=== PATIENT | female | born 1940 | race Caucasian/White ===

== ENCOUNTER → 2024-03-29 10:57 | Outpatient (REF) | payer OTHER, SELFPAY | LOC: HWWDC 10:57 | PROVIDERS: ATTENDING PHYSICIAN Internal Medicine Critical Care Medicine; FAMILY PHYSICIAN Internal Medicine Geriatric Medicine; REFERRING PHYSICIAN Obstetrics & Gynecology Gynecology | DX: J84.10 Pulmonary fibrosis, unspecified (principal); Z12.31 Encounter for screening mammogram for malignant neoplasm of breast | CPT/HCPCS: 71250; 77063; 77067 ==

== ENCOUNTER 2024-04-20 12:40 | Emergency (ER) | payer OTHER, SELFPAY ==
[2024-04-20 12:43] VITALS: BP 188/86
[2024-04-20 13:04] VITALS: BP 160/74
[2024-04-20 13:38] LABS: % Basophils 0.4 % (0-2); % Immature Granulocytes 0.3 % (0-0.5); % Lymphocytes 25.6 % (20.5-51.1); % Monocytes 7.5 % (1.7-9.3); % Neutrophils 65.2 % (42.2-75.2); Absolute Eosinophils 0.1 10^3/uL (0-0.7); Absolute Lymphocytes 2.6 10^3/uL (1.2-3.4); Absolute Monocytes 0.8 10^3/uL (0.1-0.6); Absolute Neutrophils 6.5 10^3/uL (1.4-6.5); Hematocrit 40.3 % (37.0-47.0); Hemoglobin 13.7 g/dL (12.0-16.0); Mean Corpuscular Volume 88.2 fL (81.0-99.0); Mean Platelet Volume 10.3 fL (7.4-10.4); Nucleated Red Blood Cells % 0 %; Platelet Count 173 10^3/uL (130-400); Red Blood Cell Count 4.57 10^6/uL (4.20-5.40); Red Cell Dist. Width 13.3 % (11.5-14.5)
--- NOTE | 2024-04-20 13:49 | ED.GENMED ---
History of Present Illness
General
Chief Complaint: Breathing Problem
Source: patient
Exam Limitations: none
Time Seen by Provider: 04/20/24 13:19
History of Present Illness
History of Present Illness:
83-year-old female with history of pulmonary fibrosis hyperlipidemia presents complaining of shortness of breath and sharp stabbing pain to the right scapular area when she takes a deep breath. She denies fever. She does note a productive cough.
She denies any leg swelling or calf pain. This pain started 3 days ago. No recent extended travel or surgery. No prior history of DVT or PE. She denies abdominal pain nausea or vomiting. No other complaints at this time.
Past History
Past History
ED Past Medical History: Hypercholesterolemia and Hypothyroidism
ED Past Surgical History: Cardiac (Stent) and Orthopedic (Bilateral rotator cuff surgery, Bilateral knee replacements,)
Social History
Tobacco: Non-smoker
Alcohol: None
Personal:
Living: with family
Phy Exam
Physical Exam
Physical Exam:
General: Uncomfortable appearing female no acute respiratory distress
HEENT: Normocephalic atraumatic
Heart: Regular rate and rhythm no murmurs lungs: Clear no wheeze
Abdomen is soft nontender nondistended no guarding or rebound
Extremities: No cyanosis or edema no calf tenderness
Skin is warm no rash
Scores
Heart Failure Risk
Heart Failure Risk Score: Not Applicable
Course
Orders/Labs/Results
Orders:
Orders
04/20/24 12:44
EKG [Electrocardiogram (*1)] Urgent
Reason for Study: Shortness of Breath
04/20/24 12:45
EKG- Treatment ONCE
04/20/24 13:23
IV Insert/Care/Rem.- Treatment PRN
04/20/24 13:27
CT Chest Pe Study Urgent
Comment:
Reason For Exam: pleuritic chest pain
04/20/24 13:29
Complete Blood Count/With Diff Urgent
Comprehensive Metabolic Panel Urgent
Troponin I Urgent
04/20/24 15:30
Ketorolac [Toradol] 15 mg IV NOW STA
Abnormal Lab Results
04/20/24
13:29
Absolute Monos (auto) 0.8 H 10^3/uL
(0.1-0.6)
Glucose 100 H mg/dl
(70-99)
Total Protein 6.1 L g/dl
(6.3-8.2)
04/20/24 13:29
04/20/24 13:29
Vital Signs
Initial and Last Documented VS:
Initial Vital Signs
Temp Pulse Resp BP Pulse Ox
98.0 F 79 16 188/86 99
04/20/24 12:43 04/20/24 12:43 04/20/24 12:43 04/20/24 12:43 04/20/24 12:43
Last Documented Vital Signs
Temp Pulse Resp BP Pulse Ox
98.0 F 65 17 157/74 97
04/20/24 12:43 04/20/24 14:30 04/20/24 14:30 04/20/24 14:00 04/20/24 14:30
MDM/Problems Addressed
Differential Diagnosis Includes:
Patient with pleuritic right-sided chest discomfort. This started 2 days ago and is getting worse. She also notes shortness of breath. Chronic medical conditions affecting today's care include pulmonary fibrosis. She is not tachycardic. She is
not hypoxic however given the nature of the pain worry about pulmonary embolism versus pneumothorax versus pneumonia versus musculoskeletal discomfort
Will check labs EKG troponin. CT PE study pending
*Critical Care Note
Total Time (30-74mins, 75-104mins- exclusive of procedures): Not Applicable
Update Note
Update Note:
Troponin undetectable. CT chest shows chronic fibrotic changes but no acute finding including pulmonary embolism dissection pneumothorax or pneumonia. I suspect musculoskeletal discomfort. Recommend anti-inflammatories. Stable for discharge
ED Attending Note
-
Portions of this chart may have been created with voice recognition software.� Occasional wrong word or��sound alike� substitutions may have occurred due to the inherent limitations of voice recognition software.
Discharge Plan
Departure
Patient Disposition: Home (Routine Discharge)
Date of Disposition: 04/20/24
Time of Disposition: 15:31
Patient with high blood pressure during this ER visit?: No
Discharge Problem:
Chest wall pain
Instructions: Shortness of Breath (Dyspnea) (DC)
Prescriptions:
New
prednisone 20 mg tablet
40 mg PO DAILY 5 Days Qty: 10 0RF
No Action
aspirin 81 MG tablet,delayed release (DR/EC)
81 mg PO DAILY
levothyroxine 100 MCG tablet
100 mcg PO QPM
ascorbic acid (vitamin C) [Vitamin C] 500 MG tablet
500 mg PO DAILY
pkberjmm-jfn-AO-lycopen-lutein [Centrum Silver] 1 EACH tablet
1 ea PO DAILY
coenzyme Z72-[id number] E 1 CAP capsule
100 mg PO Q48H
atorvastatin 10 MG tablet
10 mg PO Q48H
polyethylene glycol 3350 17 GRAMS powder in packet
0.5 dose PO QPM
acetaminophen [Tylenol 8 Hour] 650 MG tablet extended release
650 mg PO PRN PRN (Reason: PAIN)
cholecalciferol (vitamin D3) 1,000 UNITS tablet
1,000 units PO DAILY
Referrals:
Jesse Samaniego MD [Family Provider] -
Activity Restrictions/Additional Instructions:
Use prednisone as directed. Return for worsening symptoms otherwise follow-up with your doctor
Interventions
Interventions:
*Risk Screen - Suicide Last Done: 04/20/24 12:43
*General Assessment Last Done: 04/20/24 13:21
*Neglect/Abuse Screening Last Done: 04/20/24 12:43
ED- Fall Risk Assessment Last Done: 04/20/24 13:21
*ED COVID-19 Vaccine History Last Done: 04/20/24 13:21
ED- Cardiac Assessment Last Done: 04/20/24 13:21
ED- Pulmonary Assessment Last Done: 04/20/24 13:21
Discharge Date and Time
Print Language: CROATIAN
[2024-04-20 14:00] VITALS: BP 157/74
[2024-04-20 14:05] LABS: Troponin I < 0.012 ng/ml
[2024-04-20 14:14] LABS: ALT (SGPT) 17 U/L (0-35); AST (SGOT) 22 U/L (14-36); Albumin 3.9 g/dl (3.5-5.0); Alkaline Phosphatase 86 U/L (38-126); Blood Urea Nitrogen 14 mg/dl (7-17); Calcium 9.3 mg/dl (8.4-10.2); Chloride 103 mmol/L (98-107); Glucose 100 mg/dl (70-99); Potassium 4.3 mmol/L (3.5-5.1); Sodium 139 mmol/L (135-145); Total Bilirubin 0.6 mg/dl (0.2-1.3); Total Protein 6.1 g/dl (6.3-8.2); eGFR > 60.00
[2024-04-20 14:50] LABS: Carbon Dioxide 23 mmol/L (22-30)
[2024-04-20 15:15] VITALS: BP 161/67
[2024-04-20] MEDS: TORADOL 15 MG IV (15:37)
== END 2024-04-20 15:42 | disposition home or self-care (01) ==
LOC: EMR 12:40
PROVIDERS: Physician Assistant; EMERGENCY PHYSICIAN Emergency Medicine; FAMILY PHYSICIAN Internal Medicine Geriatric Medicine
DX: R07.89 Other chest pain (principal); E78.00 Pure hypercholesterolemia, unspecified; J84.10 Pulmonary fibrosis, unspecified
CPT/HCPCS: 99285; 96374; 71275; 80053; 84484; 85025; 93005; Q9967

== ENCOUNTER 2024-09-25 16:32 | Emergency (ER) | payer OTHER, SELFPAY ==
[2024-09-25 16:35] VITALS: BP 143/84
--- NOTE | 2024-09-25 17:16 | ED.MUSCINJ ---
HPI-Injury
General
Chief Complaint: Musculo-Skeletal Complaint
Source: patient
Time Seen by Provider: 09/25/24 17:04
History of Present Illness-Injury
Initial Injury comments:
83-year-old female with history of pulmonary fibrosis presents complaining of sudden onset of pain and swelling to the right foot onset yesterday. She was sitting eating a meal and stood up and had significant pain. The pain now radiates up to the
hip. No new chest pain or shortness of breath. Patient did recently drive [place] from [place] 1 week ago. She is not anticoagulated. No other complaints at this time. No prior history of gout. No fevers. No other complaints
Past History
Past History
ED Past Medical History: Hypercholesterolemia and Hypothyroidism
ED Past Surgical History: Cardiac (Stent) and Orthopedic (Bilateral rotator cuff surgery, Bilateral knee replacements,)
Social History
Tobacco: Non-smoker
Alcohol: None
Personal:
Living: with family
Phy Exam
Physical Exam
Physical Exam:
General: Well-appearing female no acute respiratory distress
HEENT: Normocephalic atraumatic
Heart: Regular rate and rhythm no murmurs
Lungs: Clear no wheeze
Vascular: 2+ DP pulse right foot and left foot. The right foot is warm to touch
Skin: Warm no rash or erythema no open wounds or visible foreign bodies
Musculoskeletal exam: Patient is exquisitely tender mainly over the MTP joints of the right foot primarily the first and second. She is also slightly tender over the plantar fascia of the right foot. The right calf is nontender the right knee and
hip have good range of motion.
Injury Course
Orders/Labs/Results
Orders:
Orders
09/25/24 17:16
Ketorolac [Toradol] 15 mg IV NOW STA
CR Foot - Right Min 3 Views Urgent
Comment:
Reason For Exam: pain
Venous Doppler Lwr Ext Rt [US Perip Venous LOWER Ext RT] Urgent
Comment:
Reason For Exam: pain in leg
09/25/24 17:23
HYDROmorphone [Dilaudid] 0.5 mg IV NOW STA
09/25/24 17:31
Complete Blood Count/With Diff Urgent
Comprehensive Metabolic Panel Urgent
09/25/24 18:46
Ortho Boot Right- Treatment ONCE
Short or tall?: Short
Abnormal Lab Results
09/25/24
17:31
MPV 10.6 H fL
(7.4-10.4)
Absolute Monos (auto) 0.7 H 10^3/uL
(0.1-0.6)
Glucose 106 H mg/dl
(70-99)
09/25/24 17:31
09/25/24 17:31
MDM/Problems Addressed
Differential Diagnosis Includes:
Sudden onset right foot pain relatively atraumatic in nature. She was doing a lot of walking in [place]. Question stress fracture versus fracture versus gout. No clinical signs suggestive of cellulitis. Given recent long car from [place] will
order ultrasound of right leg to evaluate for DVT. There is no respiratory distress or chest pain.
*Critical Care Note
Total Time (30-74mins, 75-104mins- exclusive of procedures): Not Applicable
Update Note
Update Note:
Ultrasound negative for DVT. X-ray shows no obvious bony abnormality. Differential chronic leg gout versus plantar fasciitis. Will place in boot start prednisone advised Tylenol and ice massages. Stable for discharge
ED Attending Note
-
Portions of this chart may have been created with voice recognition software.� Occasional wrong word or��sound alike� substitutions may have occurred due to the inherent limitations of voice recognition software.
Discharge Plan
Departure
Patient Disposition: Home (Routine Discharge)
Date of Disposition: 09/25/24
Time of Disposition: 18:47
Patient with high blood pressure during this ER visit?: No
Discharge Problem:
Foot pain
Instructions: Muscle and Bone Pain (DC)
Prescriptions:
New
prednisone 10 mg Tablet
See Rx Instructions .ROUTE .COMPLEX Qty: 30 0RF
Rx Instructions:
Take By Mouth:
40 mg daily x3 days, 30 mg daily x3 days,
20 mg daily x3 days, 10 mg daily x3 days.
No Action
aspirin 81 MG tablet,delayed release (DR/EC)
81 mg PO DAILY
levothyroxine 100 MCG tablet
100 mcg PO QPM
ascorbic acid (vitamin C) [Vitamin C] 500 MG tablet
500 mg PO DAILY
xeygvcvj-qsc-KV-lycopen-lutein [Centrum Silver] 1 EACH tablet
1 ea PO DAILY
coenzyme F02-pfbwanh E 1 CAP capsule
100 mg PO Q48H
atorvastatin 10 MG tablet
10 mg PO Q48H
polyethylene glycol 3350 17 GRAMS powder in packet
0.5 dose PO QPM
acetaminophen [Tylenol 8 Hour] 650 MG tablet extended release
650 mg PO PRN PRN (Reason: PAIN)
cholecalciferol (vitamin D3) 1,000 UNITS tablet
1,000 units PO DAILY
prednisone 20 mg tablet
40 mg PO DAILY 5 Days Qty: 10 0RF
Referrals:
Jesse Samaniego MD [Family Provider] -
Activity Restrictions/Additional Instructions:
Use the boot for support. Continue with Tylenol for pain take prednisone as directed. You may apply ice to the area. Follow-up with your doctor otherwise
Interventions
Interventions:
*Risk Screen - Suicide Last Done: 09/25/24 16:35
*General Assessment Last Done: 09/25/24 16:35
*ED COVID-19 Vaccine History Last Done: 09/25/24 16:35
ED-Musculoskeletal Assessment Last Done: 09/25/24 17:38
Discharge Date and Time
Print Language: WOLOF
[2024-09-25] MEDS: DILAUDID 0.5 MG IV (17:34)
[2024-09-25 17:41] LABS: % Basophils 0.6 % (0-2); % Eosinophils 1.5 % (0-6); % Immature Granulocytes 0.2 % (0-0.5); % Lymphocytes 31.3 % (20.5-51.1); % Monocytes 6.9 % (1.7-9.3); % Neutrophils 59.5 % (42.2-75.2); Absolute Basophils 0.1 10^3/uL (0-0.2); Absolute Eosinophils 0.2 10^3/uL (0-0.7); Absolute Lymphocytes 3.1 10^3/uL (1.2-3.4); Absolute Monocytes 0.7 10^3/uL (0.1-0.6); Absolute Neutrophils 5.9 10^3/uL (1.4-6.5); Hematocrit 44.4 % (37.0-47.0); Hemoglobin 14.7 g/dL (12.0-16.0); Mean Corp Hgb Conc. 33.1 g/dL (33.0-37.0); Mean Corpuscular Hgb 30.8 pg (27.0-31.0); Mean Corpuscular Volume 93.1 fL (81.0-99.0); Mean Platelet Volume 10.6 fL (7.4-10.4); Nucleated Red Blood Cells % 0 %; Platelet Count 185 10^3/uL (130-400); Red Blood Cell Count 4.77 10^6/uL (4.20-5.40); Red Cell Dist. Width 13.2 % (11.5-14.5)
[2024-09-25 17:52] LABS: ALT (SGPT) 20 U/L (0-35); AST (SGOT) 26 U/L (14-36); Albumin 4.7 g/dl (3.5-5.0); Alkaline Phosphatase 86 U/L (38-126); Blood Urea Nitrogen 14 mg/dl (7-17); Calcium 10.2 mg/dl (8.4-10.2); Carbon Dioxide 25 mmol/L (22-30); Chloride 99 mmol/L (98-107); Glucose 106 mg/dl (70-99); Potassium 4.1 mmol/L (3.5-5.1); Sodium 136 mmol/L (135-145); Total Bilirubin 0.9 mg/dl (0.2-1.3); Total Protein 6.8 g/dl (6.3-8.2); eGFR > 60.00
== END 2024-09-25 19:20 | disposition home or self-care (01) ==
LOC: EMR 16:32
PROVIDERS: Physician Assistant; EMERGENCY PHYSICIAN Emergency Medicine; FAMILY PHYSICIAN Internal Medicine Geriatric Medicine
DX: M79.671 Pain in right foot (principal); E78.00 Pure hypercholesterolemia, unspecified; E03.9 Hypothyroidism, unspecified; Z95.5 Presence of coronary angioplasty implant and graft
CPT/HCPCS: 99284; 96374; 73630; 80053; 85025; 93971

== ENCOUNTER 2024-10-01 15:02 | Emergency (ER) | payer OTHER, SELFPAY ==
[2024-10-01 15:05] VITALS: BP 180/86
[2024-10-01 15:36] LABS: % Basophils 0.3 % (0-2); % Eosinophils 2.9 % (0-6); % Immature Granulocytes 0.4 % (0-0.5); % Lymphocytes 34.2 % (20.5-51.1); % Monocytes 6.5 % (1.7-9.3); % Neutrophils 55.7 % (42.2-75.2); Absolute Eosinophils 0.3 10^3/uL (0-0.7); Absolute Immature Granulocytes 0.1 10^3/uL (0-0.05); Absolute Monocytes 0.8 10^3/uL (0.1-0.6); Absolute Neutrophils 6.5 10^3/uL (1.4-6.5); Hematocrit 44.3 % (37.0-47.0); Hemoglobin 14.8 g/dL (12.0-16.0); Mean Corp Hgb Conc. 33.4 g/dL (33.0-37.0); Mean Corpuscular Hgb 30.7 pg (27.0-31.0); Mean Corpuscular Volume 91.9 fL (81.0-99.0); Mean Platelet Volume 10.2 fL (7.4-10.4); Nucleated Red Blood Cells % 0 %; Platelet Count 224 10^3/uL (130-400); Red Blood Cell Count 4.82 10^6/uL (4.20-5.40); Red Cell Dist. Width 13.2 % (11.5-14.5); White Blood Cell Count 11.6 10^3/uL (4.8-10.8)
[2024-10-01 15:49] LABS: ALT (SGPT) 16 U/L (0-35); AST (SGOT) 18 U/L (14-36); Albumin 3.5 g/dl (3.5-5.0); Alkaline Phosphatase 70 U/L (38-126); Blood Urea Nitrogen 23 mg/dl (7-17); Carbon Dioxide 31 mmol/L (22-30); Chloride 100 mmol/L (98-107); Glucose 97 mg/dl (70-99); Potassium 4.8 mmol/L (3.5-5.1); Sodium 135 mmol/L (135-145); Total Bilirubin 0.4 mg/dl (0.2-1.3); Total Protein 5.7 g/dl (6.3-8.2); eGFR > 60.00
[2024-10-01 16:00] LABS: Troponin I < 0.012 ng/ml
--- NOTE | 2024-10-01 17:14 | ED.GENMED ---
History of Present Illness
General
Chief Complaint: Blood Pressure Problem
Source: patient and records
Exam Limitations: none
Time Seen by Provider: 10/01/24 17:05
Nursing documentation reviewed up to this point in time: agreed with
History of Present Illness
History of Present Illness:
84-year-old female CAD status post stenting pulmonary fibrosis not on oxygen presents with high blood pressure fatigue shortness of breath seen here few days ago with foot pain had negative Doppler negative x-ray treated with steroids has had some
sputum production, no fever does not use nebulizers does not use diuretic
Past History
Past History
ED Past Medical History: CAD, Hypercholesterolemia and Hypothyroidism
ED Past Surgical History: Cardiac (Stent) and Orthopedic (Bilateral rotator cuff surgery, Bilateral knee replacements,)
Social History
Tobacco: Non-smoker
Alcohol: None
Drug: None
Personal:
Living: with family
Employment: Retired
Review of Systems
Review of Systems
All Other Systems: Not applicable
Constitutional: Reports fatigue; Denies fever
Respiratory: Reports cough and trouble breathing
Cardiac: Denies chest pain
ABD/GI: Reports no symptoms
: Reports no symptoms
Musculoskeletal: Reports joint pain (Improving)
Neurological: Reports weakness
Phy Exam
Physical Exam
Physical Exam:
Physical Exam
General: 84 female nontoxic
Neck: No jaundice
Heart: s1/s2 regular rate and rhythm, no murmur. equal radial pulses.
Lungs: Crackles and wheeze
Abdomen: Not tender
Neuro: alert and oriented. no focal neurological deficits
Skin: no rash
Psychiatric: well kept. interactive and cooperative
Extremities: Right greater than left
Course
Orders/Labs/Results
Orders:
Orders
10/01/24 15:06
EKG [Electrocardiogram (*1)] Urgent
Reason for Study: Shortness of Breath
EKG- Treatment ONCE
10/01/24 15:17
Complete Blood Count/With Diff Urgent
Comprehensive Metabolic Panel Urgent
NT-proBNP Urgent
Comment: ADD ON
Troponin I Urgent
10/01/24 17:05
Add On- LAB Urgent
Tests Added?: pBNP
CR Chest - 2 Views Urgent
Comment:
Reason For Exam: sob
10/01/24 17:13
Ipratropium/Albuterol Sulfate [Duoneb] 3 ml INH R NOW STA
10/01/24 17:29
COVID-19 Antigen Urgent
Source: Nasal Swab
Influenza A+B Rapid Molecular Urgent
JEREMIAH Source: Nasal Swab
Specimen Description:
Respiratory Syncytial Virus Urgent
JEREMIAH Source: Nasal Swab
Specimen Description:
Date Specimen was Collected: 10/01/24
Time Specimen was Collected: 17:22
Abnormal Lab Results
10/01/24
15:17
WBC 11.6 H 10^3/uL
(4.8-10.8)
Abs Immat Gran (auto) 0.1 H 10^3/uL
(0-0.05)
Absolute Lymphs (auto) 4.0 H 10^3/uL
(1.2-3.4)
Absolute Monos (auto) 0.8 H 10^3/uL
(0.1-0.6)
Carbon Dioxide 31 H mmol/L
(22-30)
BUN 23 H mg/dl
(7-17)
Total Protein 5.7 L g/dl
(6.3-8.2)
10/01/24 15:17
10/01/24 15:17
Vital Signs
Initial and Last Documented VS:
Initial Vital Signs
Temp Pulse Resp BP Pulse Ox
98.8 F 71 17 180/86 99
10/01/24 15:05 03/16/25 15:05 10/01/24 15:05 10/01/24 15:05 10/01/24 15:05
Last Documented Vital Signs
Temp Pulse Resp BP Pulse Ox
98.8 F 70 19 154/84 98
10/01/24 15:05 10/01/24 18:18 10/01/24 18:18 10/01/24 18:52 10/01/24 18:53
MDM/Problems Addressed
Differential Diagnosis Includes:
Medication reaction from steroid, heart failure viral syndrome pneumonia pulmonary fibrosis flare
MDM/Problems Addressed:
High blood pressure shortness of breath
Chronic conditions affecting care: CAD
Acute Exacerbation and/or Progression of Chronic Illness:
Pulmonary pulmonary fibrosis
Acute Exacerbation and/or Progression of Chronic Illness: CAD
*Radiology
Radiology exam reviewed: preliminary read by ED provider
*Pulse Oximetry
Patient hypoxic: no
*EKG
Interpreted by ED Provider?: Yes
Interpretation: normal
Comparison EKG: no comparison EKG present
Heart Rate: 78
Rate: normal
Rhythm: sinus
Ischemia: no ischemia
*Automobile Mechanic Helper Interpretation
Rate: normal
Interpretation: normal
Heart Rate: 78
Rhythm: sinus
*Critical Care Note
Total Time (30-74mins, 75-104mins- exclusive of procedures): Not Applicable
Update Note
Update Note:
7:15 PM
Patient feeling much better workup negative, prior records reviewed numerous CTs of the chest, she did just finish course of steroids feels better after nebulizer is concerned that her blood pressure is up
ED Attending Note
-
Portions of this chart may have been created with voice recognition software.� Occasional wrong word or��sound alike� substitutions may have occurred due to the inherent limitations of voice recognition software.
Discharge Plan
Departure
Patient Disposition: Home (Routine Discharge)
Date of Disposition: 03/16/25
Time of Disposition: 19:13
Patient with high blood pressure during this ER visit?: Yes
Condition: Good
Discharge Problem:
Fatigue, URI, Borderline high blood pressure
Instructions: BLOOD PRESSURE
Prescriptions:
New
albuterol sulfate 90 mcg/actuation HFA aerosol inhaler
2 puff inhalation Q6H PRN (Reason: shortness of breath or wheezing) Qty: 8.5 2RF
lisinopril 2.5 mg tablet
2.5 mg PO DAILY Qty: 30 0RF
No Action
aspirin 81 MG tablet,delayed release (DR/EC)
81 mg PO DAILY
levothyroxine 100 MCG tablet
100 mcg PO QPM
ascorbic acid (vitamin C) [Vitamin C] 500 MG tablet
500 mg PO DAILY
lmjfllxs-lhl-EG-lycopen-lutein [Centrum Silver] 1 EACH tablet
1 ea PO DAILY
coenzyme L12-bsufgwb E 1 CAP capsule
100 mg PO Q48H
atorvastatin 10 MG tablet
10 mg PO Q48H
polyethylene glycol 3350 17 GRAMS powder in packet
0.5 dose PO QPM
acetaminophen [Tylenol 8 Hour] 650 MG tablet extended release
650 mg PO PRN PRN (Reason: PAIN)
cholecalciferol (vitamin D3) 1,000 UNITS tablet
1,000 units PO DAILY
prednisone 20 mg tablet
40 mg PO DAILY 5 Days Qty: 10 0RF
prednisone 10 mg Tablet
See Rx Instructions .ROUTE .COMPLEX Qty: 30 0RF
Rx Instructions:
Take By Mouth:
40 mg daily x3 days, 30 mg daily x3 days,
20 mg daily x3 days, 10 mg daily x3 days.
Referrals:
UNKNOWN - PT NOT,INTERVIEWE [Family Provider] -
Activity Restrictions/Additional Instructions:
Albuterol 2 puffs every 4-6
Lisinopril 2.5 mg a day
Take your blood pressure in the morning at night keep a log of it for when you see your primary care provider and soa architect
Interventions
Interventions:
*Risk Screen - Suicide Last Done: 10/01/24 15:04
*General Assessment Last Done: 10/01/24 15:04
*Neglect/Abuse Screening Last Done: 10/01/24 15:04
*ED- Fall Risk Assessment Last Done: 10/01/24 17:29
*ED COVID-19 Vaccine History Last Done: 10/01/24 15:04
ED- Cardiac Assessment Last Done: 10/01/24 17:15
ED- Neurological Assessment Last Done: 10/01/24 17:15
ED- Pulmonary Assessment Last Done: 10/01/24 17:15
Discharge Date and Time
Print Language: SURINAMESE
[2024-10-01 17:28] VITALS: BMI 42.0
[2024-10-01] MEDS: DUONEB 3 ML INH (17:36)
[2024-10-01 17:57] LABS: NT-proBNP 160 pg/ml
[2024-10-01 18:09] LABS: COVID-19 Antigen Negative (Negative)
[2024-10-01 18:52] VITALS: BP 154/84
[2024-10-01 19:00] VITALS: BP 168/82
== END 2024-10-01 19:38 | disposition home or self-care (01) ==
LOC: EMR 15:02
PROVIDERS: Emergency Medicine; EMERGENCY PHYSICIAN Emergency Medicine
DX: R53.83 Other fatigue (principal); J06.9 Acute upper respiratory infection, unspecified; R53.1 Weakness; R03.0 Elevated blood-pressure reading, without diagnosis of hypertension; Z11.52 Encounter for screening for COVID-19; I25.10 Atherosclerotic heart disease of native coronary artery without angina pectoris; E78.00 Pure hypercholesterolemia, unspecified; E03.9 Hypothyroidism, unspecified; J84.10 Pulmonary fibrosis, unspecified; M19.90 Unspecified osteoarthritis, unspecified site; Z95.5 Presence of coronary angioplasty implant and graft; Z96.653 Presence of artificial knee joint, bilateral; Z79.82 Long term (current) use of aspirin; Z90.49 Acquired absence of other specified parts of digestive tract; Z88.1 Allergy status to other antibiotic agents; Z88.8 Allergy status to other drugs, medicaments and biological substances
CPT/HCPCS: 99284; 94640; 71046; 80053; 83880; 84484; 85025; 87502; 87807; 87811; 93005

== ENCOUNTER → 2024-11-06 13:32 | Outpatient (REF) | payer OTHER, SELFPAY | LOC: EMG 13:32 | PROVIDERS: ATTENDING PHYSICIAN Internal Medicine Geriatric Medicine | DX: M79.2 Neuralgia and neuritis, unspecified (principal); R20.0 Anesthesia of skin | CPT/HCPCS: 95886; 95910 ==

== ENCOUNTER → 2024-12-26 09:06 | Outpatient (REF) | payer OTHER, SELFPAY | LOC: RAD 09:06 | PROVIDERS: ATTENDING PHYSICIAN Internal Medicine; FAMILY PHYSICIAN Internal Medicine Geriatric Medicine | DX: K21.9 Gastro-esophageal reflux disease without esophagitis (principal) | CPT/HCPCS: 74221 ==

== ENCOUNTER 2025-02-23 06:15 | Day surgery (SDC) | payer OTHER, SELFPAY ==
[2025-02-23] VITALS (8 sets, daily range): BP systolic 146–160; BP diastolic 59–77; BMI 40.6
== END 2025-02-23 11:40 | disposition home or self-care (01) ==
LOC: SDS 06:15
PROVIDERS: ATTENDING PHYSICIAN Obstetrics & Gynecology Gynecology
DX: R87.612 Low grade squamous intraepithelial lesion on cytologic smear of cervix (LGSIL) (principal); N95.0 Postmenopausal bleeding
CPT/HCPCS: 58558; 88305

== ENCOUNTER 2025-03-05 06:27 | Day surgery (SDC) | payer OTHER, SELFPAY | END 2025-03-05 10:30 | disposition home or self-care (01) | LOC: GI 06:27 | PROVIDERS: ATTENDING PHYSICIAN Internal Medicine | DX: Z12.11 Encounter for screening for malignant neoplasm of colon (principal); K64.8 Other hemorrhoids; K57.30 Diverticulosis of large intestine without perforation or abscess without bleeding; R13.10 Dysphagia, unspecified; R12 Heartburn; K31.7 Polyp of stomach and duodenum; K31.89 Other diseases of stomach and duodenum; Z86.0100 Personal history of colon polyps, unspecified | CPT/HCPCS: 43239; G0105; 88305; 88342 ==

== ENCOUNTER → 2025-05-08 13:40 | Outpatient (REF) | payer OTHER, SELFPAY | LOC: HWRAD 13:40 | PROVIDERS: ATTENDING PHYSICIAN Obstetrics & Gynecology Gynecology; FAMILY PHYSICIAN Internal Medicine Geriatric Medicine | DX: N83.201 Unspecified ovarian cyst, right side (principal) | CPT/HCPCS: 76856 ==

== ENCOUNTER → 2025-06-15 14:19 | Outpatient (REF) | payer OTHER, SELFPAY | LOC: HWWDC 14:19 | PROVIDERS: ATTENDING PHYSICIAN Obstetrics & Gynecology Gynecology; FAMILY PHYSICIAN Internal Medicine Geriatric Medicine | DX: N83.201 Unspecified ovarian cyst, right side (principal) | CPT/HCPCS: 77063; 77067 ==